=== PATIENT | female | born 1980 | race Caucasian/White ===

== ENCOUNTER 2016-12-13 16:11 | Emergency (ER) | payer OTHER ==
[~2016-12-13] VITALS: Wt 113.4 kg
[~2016-12-13 16:11] MED LIST: 'PARAFON FORTE500 M1 PO; ALEVE220 M1 PO; AMOXICILLIN500 MG PO; ANAPROX DS550 MG PO; AUGMENTIN 875 M1 TA1 PO; BACTRIM DS 8001 TA1 PO; CIPRO250 MG PO; CIPROFLOXACIN500 MG PO; CLEOCIN150 MG PO; CYCLOBENZAPRINE10 MG PO; CYCLOBENZAPRINE5 M3 PO; ELMIRON100 MG PO; FLEXERIL10 MG PO; HYDROCODONE BIT1 T11 PO; IBU800 M1 PO; IBUPROFEN 30 M800 MG PO; MOTRIN800 MG PO; NAPROSYN500 MG PO; NKHM; NORCO 325 MG-51 TAB PO; NORCO 5-325 TA1 EACH PO; PARAFON FORTE500 MG PO; PEN-VEE K500 MG PO; PENICILLIN-VK500 M1 PO; PENICILLIN-VK500 MG PO; PERCOCET 325 MG1 TA2 PO; PERCOCET 325 MG1 TA5 PO; PHENERGAN25 M1 PO; PRENATAL1 TA1; PYRIDIUM200 M1 PO; PYRIDIUM200 MG PO; ROBAXIN500 MG PO; SEPTRA DS 800 M1 TAB PO; TRAMADOL HCL50 MG PO; ULTRAM50 MG PO; URISPAS100 MG PO; VIBRAMYCIN100 MG PO; ZANTAC150 MG PO; ZITHROMAX Z PA250 MG PO; ZOFRAN ODT4 MG SL; Zofran4 MG PO
[2016-12-13] MEDS ORDERED: CITALOPRAM HYDR20 MG PO (16:36)
[2016-12-13] MEDS ORDERED: CYCLOBENZAPRINE10 MG PO (16:36)
[2016-12-13] MEDS ORDERED: NAPROSYN500 MG PO (19:15)
== END 2016-12-13 18:54 | disposition home or self-care (01) ==
LOC: ED 16:11
DX: M79.671 Pain in right foot (principal); F17.200 Nicotine dependence, unspecified, uncomplicated; Z79.899 Other long term (current) drug therapy

== ENCOUNTER → 2017-04-07 | Outpatient (CLI) | payer OTHER ==
[~2017-04-07] MED LIST changes: +CITALOPRAM HYDR20 MG PO
[2017-04-07 15:10] LABS: HEMATOCRIT 46.6 % (37.0-47.0); HEMOGLOBIN 15.6 g/dl (12.0-16.0); MEAN CELL VOLUME 96.5 fl (81.0-99.0); MEAN CORPUSCULAR HGB 32.3 pg (27.0-31.0); MEAN CORPUSCULAR HGB CONC 33.5 g/dl (33.0-37.0); MEAN PLATELET VOLUME 10.9 fl (9.6-12.3); RED BLOOD COUNT 4.83 10*6/uL (4.10-5.10); RED CELL DISTRI WIDTH 13.1 % (0-14.5); WHITE BLOOD COUNT 12.1 10*3/uL (4.8-10.8)
[2017-04-07 15:37] LABS: ALBUMIN 3.9 gm/dl (3.1-4.5); ALKALINE PHOSPHATASE 116 U/L (45-117); BILIRUBIN, TOTAL 0.3 mg/dl (0.2-1.0); BUN 6 mg/dl (7-24); CARBON DIOXIDE 27 mmol/L (21-32); CHLORIDE 103 mmol/L (98-107); EST GLOM FILT AFRICAN AMERICAN > 60 ml/min; GLUCOSE 97 mg/dL (65-99); SGOT/AST 9 IU/L (3-35); SGPT/ALT 15 U/L (12-78); SODIUM 136 mmol/L (136-145); TOTAL PROTEIN 8.1 gm/dL (6.4-8.2)
== END | disposition home or self-care (01) ==
LOC: LAB 14:53
PROVIDERS: Family Medicine
DX: Z02.89 Encounter for other administrative examinations (principal)

== ENCOUNTER 2017-06-01 14:41 | Emergency (ER) | payer OTHER ==
[~2017-06-01] VITALS: Ht 175.2 cm; Wt 113.4 kg
[2017-06-01 15:22] LABS: BASO # 0.1 10*3/uL (0.0-0.1); BASO % 0.8 % (0.0-1.0); EOS # 0.2 10*3/uL (0.0-0.4); EOS % 1.3 % (1.0-4.0); HEMATOCRIT 41.6 % (37.0-47.0); HEMOGLOBIN 13.9 g/dl (12.0-16.0); LYMPH % 17.1 % (27.0-41.0); MEAN CELL VOLUME 97.9 fl (81.0-99.0); MEAN CORPUSCULAR HGB 32.7 pg (27.0-31.0); MEAN CORPUSCULAR HGB CONC 33.4 g/dl (33.0-37.0); MEAN PLATELET VOLUME 10.6 fl (9.6-12.3); MONO # 0.7 10*3/uL (0.1-1.0); MONO % 5.8 % (3.0-9.0); NEUT # 8.9 10*3/uL (2.3-7.9); NEUT % 74.7 % (47.0-73.0); PLATELET COUNT AUTOMATED 260 10*3/uL (130-400); RED BLOOD COUNT 4.25 10*6/uL (4.10-5.10); RED CELL DISTRI WIDTH 13.7 % (0-14.5)
[2017-06-01 15:38] LABS: ALBUMIN 3.4 gm/dl (3.1-4.5); BUN 6 mg/dl (7-24); CHLORIDE 104 mmol/L (98-107); CREATININE 0.91 mg/dL (0.55-1.02); POTASSIUM 3.9 mmol/L (3.5-5.1); SGOT/AST 11 IU/L (3-35); SGPT/ALT 21 U/L (12-78); SODIUM 138 mmol/L (136-145); TOTAL PROTEIN 7.4 gm/dL (6.4-8.2)
[2017-06-01 15:39] LABS: ALKALINE PHOSPHATASE 121 U/L (45-117)
[2017-06-01] MEDS ORDERED: PREDNISONE20 M1 PO (16:29)
[2017-06-01] MEDS ORDERED: AUGMENTIN 875875 MG PO (16:29)
== END 2017-06-01 16:31 | disposition home or self-care (01) ==
LOC: ED 14:41
PROVIDERS: Nurse Practitioner Family
DX: J20.9 Acute bronchitis, unspecified (principal); F17.210 Nicotine dependence, cigarettes, uncomplicated; Z90.49 Acquired absence of other specified parts of digestive tract; Z98.890 Other specified postprocedural states; Z79.899 Other long term (current) drug therapy

== ENCOUNTER 2017-06-27 19:28 | Emergency (ER) | payer OTHER ==
[~2017-06-27] VITALS: Ht 175.2 cm; Wt 90.7 kg
[~2017-06-27 19:28] MED LIST changes: +AUGMENTIN 875875 MG PO; +PREDNISONE20 M1 PO
[2017-06-27 19:49] LABS: BILIRUBIN NEGATIVE (NEGATIVE); BLOOD NEGATIVE (NEGATIVE); CLARITY SL CLOUDY (CLEAR); COLOR YELLOW (YELLOW); GLUCOSE NEGATIVE (NEGATIVE); KETONE NEGATIVE (NEGATIVE); LEUKO ESTERASE TRACE (NEGATIVE); NITRITE NEGATIVE (NEGATIVE); SPECIFIC GRAVITY 1.015 (1.005-1.030); UROBILINOGEN 0.2 E.U./dl (0.2-1.0)
[2017-06-27 20:10] LABS: BACTERIA TRACE; RBC 0-2 rbc/hpf (0-2)
[2017-06-27] MEDS ORDERED: PREDNISONE20 M1 PO (21:19)
[2017-06-27] MEDS ORDERED: TESSALON PERLE100 M1 PO (21:19)
[2017-06-27] MEDS ORDERED: MACROBID100 M1 PO (21:19)
== END 2017-06-27 21:22 | disposition home or self-care (01) ==
LOC: ED 19:28
PROVIDERS: Emergency Medicine Emergency Medical Services
DX: J20.9 Acute bronchitis, unspecified (principal); N39.0 Urinary tract infection, site not specified; F17.200 Nicotine dependence, unspecified, uncomplicated; Z90.49 Acquired absence of other specified parts of digestive tract; Z98.890 Other specified postprocedural states; Z79.899 Other long term (current) drug therapy

== ENCOUNTER 2021-04-30 17:12 | Inpatient (IN) | payer OTHER ==
[~2021-04-30] VITALS: Ht 175.2 cm; Wt 108.4 kg
[~2021-04-30 17:12] MED LIST changes: +MACROBID100 M1 PO; +TESSALON PERLE100 M1 PO
[2021-04-30 17:47] VITALS: BP 93/48
[2021-04-30 18:33] LABS: BASO # 0.1 10*3/uL (0.0-0.1); BASO % 0.4 % (0.0-1.0); HEMATOCRIT 48.3 % (37.0-47.0); LYMPH # 1.8 10*3/uL (1.3-4.4); LYMPH % 12.4 % (27.0-41.0); MEAN CELL VOLUME 95.5 fl (81.0-99.0); MEAN CORPUSCULAR HGB 31.4 pg (27.0-31.0); MEAN CORPUSCULAR HGB CONC 32.9 g/dl (33.0-37.0); MEAN PLATELET VOLUME 11.2 fl (9.6-12.3); MONO % 7.2 % (3.0-9.0); NEUT # 11.6 10*3/uL (2.3-7.9); NEUT % 79.5 % (47.0-73.0); PLATELET COUNT AUTOMATED 205 10*3/uL (130-400); RED BLOOD COUNT 5.06 10*6/uL (4.10-5.10); RED CELL DISTRI WIDTH 13.3 % (0-14.5); WHITE BLOOD COUNT 14.5 10*3/uL (4.8-10.8)
[2021-04-30 18:53] LABS: ALBUMIN 3.5 gm/dl (3.1-4.5); ALKALINE PHOSPHATASE 121 U/L (45-117); BUN 14 mg/dl (7-24); CHLORIDE 108 mmol/L (98-107); CREATININE 1.65 mg/dL (0.55-1.02); LIPASE 38 U/L (73-393); POTASSIUM 3.7 mmol/L (3.5-5.1); SGOT/AST 13 IU/L (3-35); SGPT/ALT 26 U/L (12-78); SODIUM 140 mmol/L (136-145); TOTAL PROTEIN 7.8 gm/dL (6.4-8.2)
[2021-04-30 19:05] LABS: ETHYL ALCOHOL < 3.0 mg/dl (<3); TROPONIN I < 0.015 ng/ml (<0.045)
[2021-04-30 19:06] LABS: ACETAMINOPHEN (TYLENOL) < 5.0 ug/ml (10-30)
[2021-04-30 19:10] VITALS: BP 121/56
[2021-04-30 19:56] LABS: BILIRUBIN 1+ (Negative); BLOOD 3+ (Negative); CLARITY Turbid (Clear); COLOR Dark Yellow (Yellow); GLUCOSE Negative (Negative); KETONE 1+ (Negative); LEUKO ESTERASE 3+ (Negative); NITRITE Positive (Negative); SPECIFIC GRAVITY 1.015 (1.001-1.030)
[2021-04-30 20:32] VITALS: BP 98/65
[2021-04-30 20:34] LABS: WBC TNTC wbc/hpf (0-5)
[2021-04-30 20:43] LABS: URINE AMPHETAMINES < 1000 (1000ng/ml); URINE BARBITURATES < 200 (200ng/ml); URINE BENZODIAZEPINES < 200 (200ng/ml); URINE CANNABINOIDS (THC) < 50 (50ng/ml); URINE COCAINE < 300 (300ng/ml); URINE METHADONE < 300 (300ng/ml); URINE OPIATES < 300 (300ng/ml)
[2021-04-30 20:46] LABS: URINE PHENCYCLIDINE < 25 (25ng/ml)
[2021-04-30 22:56] VITALS: BP 130/51
[2021-05-01] VITALS (11 sets, daily range): BP systolic 88–148; BP diastolic 00–90
[2021-05-02 03:00] VITALS: BP 110/60
[2021-05-02 05:42] VITALS: BP 184/130
[2021-05-02 09:03] LABS: HEMATOCRIT 45.6 % (37.0-47.0); MEAN CELL VOLUME 95.2 fl (81.0-99.0); MEAN CORPUSCULAR HGB 31.3 pg (27.0-31.0); MEAN CORPUSCULAR HGB CONC 32.9 g/dl (33.0-37.0); MEAN PLATELET VOLUME 11.3 fl (9.6-12.3); PLATELET COUNT AUTOMATED 173 10*3/uL (130-400); RED BLOOD COUNT 4.79 10*6/uL (4.10-5.10); RED CELL DISTRI WIDTH 13.5 % (0-14.5); WHITE BLOOD COUNT 8.4 10*3/uL (4.8-10.8)
[2021-05-02 09:14] LABS: CREATININE 1.27 mg/dL (0.55-1.02); POTASSIUM 3.5 mmol/L (3.5-5.1); TOTAL PROTEIN 7.6 gm/dL (6.4-8.2)
[2021-05-02 09:20] LABS: TOTAL CELLS COUNTED 100 #CELLS
[2021-05-02 09:21] LABS: PLATELET SUFFICIENCY NORMAL (NORMAL)
[2021-05-02] MEDS ORDERED: VENTOLIN 02.5 MG/3 M INH (11:23)
[2021-05-02] MEDS ORDERED: CLARITIN10 MG PO (11:24)
[2021-05-02 11:57] VITALS: BP 126/60
[2021-05-02] MEDS ORDERED: OMEPRAZOLE40 MG PO (14:57)
[2021-05-02 16:00] VITALS: BP 116/54
[2021-05-02 20:00] VITALS: BP 126/69
[2021-05-03] VITALS: BP 99/59
[2021-05-03 06:29] LABS: BASO % 0.3 % (0.0-1.0); HEMATOCRIT 44.5 % (37.0-47.0); LYMPH # 1.4 10*3/uL (1.3-4.4); LYMPH % 17.2 % (27.0-41.0); MEAN CELL VOLUME 95.7 fl (81.0-99.0); MEAN CORPUSCULAR HGB 31.2 pg (27.0-31.0); MEAN CORPUSCULAR HGB CONC 32.6 g/dl (33.0-37.0); MEAN PLATELET VOLUME 11.7 fl (9.6-12.3); MONO # 0.4 10*3/uL (0.1-1.0); MONO % 4.4 % (3.0-9.0); NEUT # 6.2 10*3/uL (2.3-7.9); NEUT % 77.8 % (47.0-73.0); PLATELET COUNT AUTOMATED 171 10*3/uL (130-400); RED BLOOD COUNT 4.65 10*6/uL (4.10-5.10); RED CELL DISTRI WIDTH 13.8 % (0-14.5)
[2021-05-03 06:45] LABS: ALBUMIN 2.8 gm/dl (3.1-4.5); ALKALINE PHOSPHATASE 94 U/L (45-117); BUN 18 mg/dl (7-24); CHLORIDE 112 mmol/L (98-107); CHOLESTEROL 131 mg/dL (<200); CREATININE 0.92 mg/dL (0.55-1.02); FREE T4 0.97 ng/dl (0.76-1.46); LDL CHOLESTEROL 76 mg/dL (9-159); LIPASE 99 U/L (73-393); POTASSIUM 3.9 mmol/L (3.5-5.1); SGOT/AST 8 IU/L (3-35); SGPT/ALT 20 U/L (12-78); SODIUM 143 mmol/L (136-145); TOTAL PROTEIN 7.3 gm/dL (6.4-8.2); TRIGLYCERIDES 223 mg/dl (<150)
[2021-05-03 06:49] LABS: THYROID STIM HORMONE (HS) 0.394 uIU/ml (0.358-4.75)
[2021-05-03 07:46] LABS: VITAMIN D, 25-HYDROXY 15.8 ng/mL (30-100)
[2021-05-03 08:00] VITALS: BP 101/60
[2021-05-03 12:00] VITALS: BP 126/71
[2021-05-03 16:00] VITALS: BP 123/50
[2021-05-03 20:00] VITALS: BP 121/65
[2021-05-04] VITALS: BP 118/62
[2021-05-04 08:00] VITALS: BP 125/62
[2021-05-04] MEDS ORDERED: ATORVASTATIN CA20 M1 PO (10:50)
[2021-05-04] MEDS ORDERED: VITAMIN D350 MC2 PO (10:50)
[2021-05-04] MEDS ORDERED: PREDNISONE10 MG PO (10:50)
[2021-05-04] MEDS ORDERED: CITALOPRAM20 MG PO (10:50)
[2021-05-04] MEDS ORDERED: CEFUROXIME AXE500 MG PO (10:50)
== END 2021-05-04 11:26 | disposition home or self-care (01) | DRG 720 ==
LOC: ED 17:12 → EDHOLD 05-02 09:16 → 4E 05-02 09:16 → EDHOLD 05-02 09:19 → 4E 05-02 15:10
PROVIDERS: Emergency Medicine; Nurse Practitioner Family; Registered Nurse; ADMIT Student in an Organized Health Care Education/Training Program; ATTEND Student in an Organized Health Care Education/Training Program
PROC: 5A09357 Assistance with Respiratory Ventilation, Less than 24 Consecutive Hours, Continuous Positive Airway Pressure (ICD-10-PCS; principal; 2021-05-02)
DX: A41.50 Gram-negative sepsis, unspecified (principal); N30.01 Acute cystitis with hematuria; G93.41 Metabolic encephalopathy; N17.9 Acute kidney failure, unspecified; B96.20 Unspecified Escherichia coli [E. coli] as the cause of diseases classified elsewhere; E44.0 Moderate protein-calorie malnutrition; J20.9 Acute bronchitis, unspecified; Z20.822 Contact with and (suspected) exposure to COVID-19; Z87.440 Personal history of urinary (tract) infections; Z84.89 Family history of other specified conditions; Z79.899 Other long term (current) drug therapy; Z79.52 Long term (current) use of systemic steroids; Z90.49 Acquired absence of other specified parts of digestive tract; Z98.891 History of uterine scar from previous surgery; Z80.8 Family history of malignant neoplasm of other organs or systems; Z68.35 Body mass index [BMI] 35.0-35.9, adult

== ENCOUNTER 2021-05-29 13:27 | Emergency (ER) | payer OTHER ==
[~2021-05-29] VITALS: Ht 175.2 cm; Wt 113.4 kg
[~2021-05-29 13:27] MED LIST changes: +ATORVASTATIN CA20 M1 PO; +CEFUROXIME AXE500 MG PO; +CITALOPRAM20 MG PO; +CLARITIN10 MG PO; +OMEPRAZOLE40 MG PO; +PREDNISONE10 MG PO; +VENTOLIN 02.5 MG/3 M INH; +VITAMIN D350 MC2 PO
[2021-05-29 20:09] LABS: BASO # 0.1 10*3/uL (0.0-0.1); BASO % 0.8 % (0.0-1.0); EOS # 0.4 10*3/uL (0.0-0.4); EOS % 3.6 % (1.0-4.0); HEMATOCRIT 50.7 % (37.0-47.0); LYMPH # 4.4 10*3/uL (1.3-4.4); LYMPH % 38.9 % (27.0-41.0); MEAN CELL VOLUME 95.5 fl (81.0-99.0); MEAN CORPUSCULAR HGB 31.1 pg (27.0-31.0); MEAN CORPUSCULAR HGB CONC 32.5 g/dl (33.0-37.0); MEAN PLATELET VOLUME 11.4 fl (9.6-12.3); MONO # 0.9 10*3/uL (0.1-1.0); MONO % 7.8 % (3.0-9.0); NEUT # 5.6 10*3/uL (2.3-7.9); NEUT % 48.7 % (47.0-73.0); PLATELET COUNT AUTOMATED 241 10*3/uL (130-400); RED BLOOD COUNT 5.31 10*6/uL (4.10-5.10); RED CELL DISTRI WIDTH 13.5 % (0-14.5); WHITE BLOOD COUNT 11.4 10*3/uL (4.8-10.8)
[2021-05-29 20:27] LABS: ALBUMIN 4.2 gm/dl (3.1-4.5); ALKALINE PHOSPHATASE 144 U/L (45-117); BUN 8 mg/dl (7-24); CHLORIDE 106 mmol/L (98-107); CREATININE 0.88 mg/dL (0.55-1.02); POTASSIUM 3.9 mmol/L (3.5-5.1); SGOT/AST 12 IU/L (3-35); SGPT/ALT 28 U/L (12-78); SODIUM 139 mmol/L (136-145); TOTAL PROTEIN 8.7 gm/dL (6.4-8.2)
[2021-05-29 20:35] LABS: BILIRUBIN Negative (Negative); BLOOD Negative (Negative); CLARITY Clear (Clear); COLOR Yellow (Yellow); GLUCOSE Negative (Negative); KETONE Negative (Negative); LEUKO ESTERASE Negative (Negative); NITRITE Negative (Negative); SPECIFIC GRAVITY 1.015 (1.001-1.030)
[2021-05-29 20:45] LABS: BACTERIA TRACE
== END 2021-05-29 23:52 | disposition home or self-care (01) ==
LOC: ED 13:27
PROVIDERS: Physician Assistant
DX: R11.0 Nausea (principal); Z20.822 Contact with and (suspected) exposure to COVID-19; M54.5 Low back pain; R10.30 Lower abdominal pain, unspecified; Z79.899 Other long term (current) drug therapy

== ENCOUNTER → 2022-01-09 | Outpatient (CLI) | payer OTHER | END | disposition home or self-care (01) | LOC: US 09:31 | PROVIDERS: ATTEND Obstetrics & Gynecology | DX: R10.2 Pelvic and perineal pain (principal) ==